=== PATIENT | male | born 1960 | race Caucasian/White ===

== ENCOUNTER 2017-09-17 03:40 | Inpatient (IN) | payer OTHER ==
[~2017-09-17] VITALS: Ht 180.3 cm; Wt 104.3 kg
[~2017-09-17 03:40] MED LIST: LISINOPRIL-HCT1 EAC1 PO; PRAVACHOL40 M1 PO
--- NOTE | 2017-09-17 08:46 | Admission Core Measures ---
Acute Coronary Syndrome (CM) ACS Core Measures Acute Coronary Syndrome Diagnosis No Congestive Heart Failure (NEW) CHF Core Measures Congestive Heart Failure Diagnosis No Cerebrovascular Accident (NEW) CVA Core Measures CVA/TIA Diagnosis No Venous Thromboembolism VTE Core Jaylene (View Protocol) VTE Risk Factors Surgery No Mechanical VTE Prophylaxis d/t N/A MechProphylax Ordered No VTE Pharm Prophylaxis d/t NA PharmProphylax ordered Problem List As ranked by this Provider includes Assessment & Plan 1. Unilateral primary osteoarthritis, left hip HOME MEDS Home Med List Lisinopril/Hydrochlorothiazide (Lisinopril-Hctz 20-25 MG Tab) 20 MG-25 MG TABLET 1 TAB PO DAILY BP (Reported) Pravastatin Sodium (Pravachol) 40 MG TABLET 1 TAB PO DAILY CHOLESTEROL ( Reported)
[2017-09-17] MEDS ORDERED: INDOMETHACIN25 M1 PO (09:18)
[2017-09-17] MEDS ORDERED: MS CONTIN15 M3 PO (09:18)
[2017-09-17] MEDS ORDERED: ASPIRIN EC81 M1 PO (09:18)
[2017-09-17] MEDS ORDERED: DILAUDID2 M1 PO (09:18)
[2017-09-17] MEDS ORDERED: COLACE100 M1 PO (09:18)
[2017-09-17] MEDS ORDERED: MIRALAX17 G1 PO (09:18)
[2017-09-17] MEDS ORDERED: PROTONIX20 M1 PO (09:18)
--- NOTE | 2017-09-17 09:24 | Patient Discharge Instructions ---
Discharge Instructions General Discharge Information You were seen/treated for: Left hip pain related to osteoarthritis You had these procedures: Left total hip arthroplasty Watch for these problems: Worsening pain despite pain medications Inability to bear wear on operative leg Redness or drainage from incision Fever > 101 F Other wound care: Keep incision clean and dry. Dressing will be changed 48hr after surgery, then you may shower. Do not soak wound- no tub baths/swimming. Daily dry dressings recommended. Watch for signs of wound infection Special Instructions: Take Aspirin 81mg twice daily for 30 days. Take miralax and colace to prevent constipation. Take Indocin for 10 days and Dilaudid as needed for pain control. Take Protonix for GI protection while taking high dose aspirin. Diet Continue normal diet: Yes Activity Activity Self Limited: Yes Activity Limited to: Weight bear as tolerated Additional ACTIVITY Info: Use rolling walker as needed Acute Coronary Syndrome Inclusion Criteria At DC or during hospital stay patient has or had the following: ACS DIAGNOSIS No Discharge Core Measures Meds if any: Prescribed or Continued at Discharge Meds if any: NOT Prescribed or Continued at Discharge Congestive Heart Failure Inclusion Criteria At DC or during hospital stay patient has or had the following: CHF DIAGNOSIS No Discharge Core Measures Meds if any: Prescribed or Continued at Discharge Meds if any: NOT Prescribed or Continued at Discharge Cerebrovascular accident Inclusion Criteria At DC or during hospital stay patient has or had the following: CVA/TIA Diagnosis No Discharge Core Measures Meds if any: Prescribed or Continued at Discharge Meds if any: NOT Prescribed or Continued at Discharge Venous thromboembolism Inclusion Criteria VTE Diagnosis No VTE Type NONE VTE Confirmed by (Test) NONE Discharge Core Measures - Per Current guidelines, there needs to be overlap - treatment for the first 5 days of Warfarin therapy. - If discharged on Warfarin prior to 5 days of - overlap therapy, the patient will need to be - assessed for post discharge needs including - *Post discharge parental anticoagulation - *Warfarin and/or parental anticoagulation education - *Follow up date to check INR post discharge At least 5 days overlap therapy as Inpatient No Meds if any: Prescribed or Continued at Discharge Note: Overlap Therapy is Warfarin and Anticoagulant Meds if any: NOT Prescribed or Continued at Discharge
--- NOTE | 2017-09-17 09:25 | Surg Short-stay <48hrs Dis Sum ---
Visit Information Visit Dates Admission Date: 09/17/17 Discharge Date: 09/17/17 Surgical Short Stay DC Summary Admission Diagnosis: Primary osteoarthritis left hip Final Diagnosis: Same, status post left total hip arthroplasty Procedure(s): Left total hip arthroplasty Summary/Significant Findings: Patient was admitted to the hospital for an elective total left hip replacement. Procedure was tolerated well and patient was transferred to a general surgical floor. Diet was advanced and tolerated. Physical therapy performed evaluation and treatment. At time of hospital discharge, vital signs were stable, neurovascular status was intact, and pain was controlled with the use of oral pain medications. Condition at Discharge: Stable Discharge Disposition: home health services Discharge instructions provided to patient/family: Yes Post discharge follow-up plan: Follow up with Dr. Paulino in 6 weeks from date of surgery. Please call his office to schedule/confirm this appointment.
--- NOTE | 2017-09-17 09:59 | RADIOLOGY REPORT ---
EXAMINATION: XR HIP, LEFT CLINICAL INFORMATION: Arthroplasty COMPARISON: None TECHNIQUE: Two views of the left hip. FINDINGS: The hip arthroplasty is in anatomic position and alignment. No fracture seen. IMPRESSION: Expected arthroplasty findings.
[2017-09-17 11:00] VITALS: BP 110/68
--- NOTE | 2017-09-17 11:29 | PN- Orthopedic ---
Subjective Subjective: Patient reports no pain postop. He reports resolution in his lower extremity numbness. He is tolerating clears. Denies voiding. Offers no complaints. Objective Vital Signs and I&Os Vital Signs Date Time Temp Pulse Resp B/P B/P Pulse O2 O2 Flow FiO2 Mean Ox Delivery Rate 09/17 1055 Nasal 2.0L Cannula Intake & Output 09/17 1600 09/17 0800 09/17 0000 09/16 1600 09/16 0800 09/16 0000 Intake Total Output Total Balance Patient 230 lb 225 lb Weight Weight Reported by Patient Measurement Method Physical Exam: Vitals: afebrile, HR 88, BP 110/68, RR 22, O2 92% Gen - nad Cardiac - S1S2 noted, RRR Lungs - CTAB Ext - L hip dressing c/d/i, moves all extremities, compartment soft, motor an senosry intact, no edema or calf tenderness, alps in place Current Medications: Current Medications Sig/Lindsay Start time Last Medication Dose Route Stop Time Status Admin Acetaminophen 975 MG ONCE 09/17 0000 DC PO 09/17 2359 Aspirin 81 MG BID 09/17 1000 UNVr PO Cefazolin Sodium 2 GM IQ8 09/17 1600 UNVr N/A 1 UNIT IV 09/18 0029 Cefazolin Sodium 2,000 MG ONCE 09/17 0000 DC IV 09/17 2359 Dextrose/Sodium 1,000 ML .[id number] 09/17 1145 UNVr Chloride IV Hydrochlorothiazide 25 MG DAILY 09/18 1000 UNVr PO Hydromorphone HCl 2 MG Q4P PRN 09/17 1145 UNVr PO Hydromorphone HCl 4 MG Q4P PRN 09/17 1145 UNVr PO Lisinopril 20 MG DAILY 09/18 1000 UNVr PO Morphine Sulfate 2 MG Q2P PRN 09/17 1145 UNVr IV Omeprazole 20 MG DAILY AC 09/18 0700 UNVr PO Ondansetron HCl 4 MG Q6P PRN 09/17 1145 UNVr IV Oxycodone HCl 10 MG ONCE 09/17 0000 DC PO 09/17 2359 Pravastatin Sodium 40 MG 1700 09/17 1700 UNVr PO Promethazine HCl 12.5 MG Q6P PRN 09/17 1145 UNVr IV 09/24 0859 Assessment/Plan Assessment/Plan 57 M POD 0 s/p L THR, recovernig well, awaiting postop void and PT eval PT eval, WBAT Reg diet, IVF Pain regimen, ice prn Indocin 25 mg po bid x 10 days Asa 81 bid, first dose tonight GI ppx on board Home meds ordered Bowel regimen on board Monitor postop void Encourage IS D/c meds/instructions explained in detail Anticipate d/c today w/ hhs pending PT clearance Core Measures Venous Thromboembolism VTE Risk Factors Surgery No Mechanical VTE Prophylaxis d/t N/A MechProphylax Ordered No VTE Pharm Prophylaxis d/t NA PharmProphylax ordered
[2017-09-17 14:20] VITALS: BP 120/70
--- NOTE | 2017-09-17 14:41 | Operative Report ---
Operative/Inv Procedure Report Surgery Date: 09/17/17 Name of Procedure: Left total hip replacement Pre-Operative Diagnosis: Primary left hip DJD Post-Operative Diagnosis: Same Estimated Blood Loss: 250 Surgeon/Linux System Admin: Jefferson CESAR,Hao Edmonds Anesthesia: block Operative/Procedure Note Note: Description of Procedure: The patient was taken to the operating room and positively identified. After induction of spinal anesthesia and administration of appropriate pre-operative antibiotics, the patient was positioned supine on the operating room table and all bony prominences were well padded. After performing a surgical timeout, the left lower extremity was prepped and draped in the usual sterile fashion. A direct anterior approach was made to the left hip. The incision was carried sharply through superficial soft tissues to the level of the fascia. Meticulous hemostasis was maintained with Bovie electocautery. The fascia over the tensor fascia jack muscle was opened sharply and the interval between the TFL and the sartorius was entered bluntly taking care to stay lateral to the lateral femoral cutaneous nerve. Retractors were placed around the femoral neck and the pericapsular fat was identified. The ascending branches of the lateral femoral circumflex vessels were identified and carefully coagulated. The pericapsular fat and anterior capsule were then resected. A napkin ring osteotomy was performed and the femoral head was removed without difficulty. Attention was then turned to the acetabulum. After appropriate placement of retractors, the acetabulum was exposed. Soft tissue was cleaned from the acetabular margin and notch. Overhanging osteophytes were removed and the teardrop was exposed. The acetabulum was then sequentially reamed to accept a 56 mm Accokeek Tritanium hemispherical solid shell. This was impacted into place in the appropriate position and fitted with a 36 mm Trident X3 zero degree polyethylene insert. Attention was then turned to the femur. After performing the appropriate ligament releases, the proximal femur was exposed. It was then sequentially broached to accept a size 8 Andrzej secure fit advanced 127 neck angle stem. This was trialed for leg length and stability. The trial component was removed and the final component was impacted into place. The trunnion was carefully cleaned and fit with a 36 mm, +2.5 Biolox delta ceramic femoral head. The hip was reduced and put through a full range of motion and found to be stable. The articular space was then irrigated with sterile saline. The periarticular soft tissues were infilitrated with Marcaine. The fascial layer was closed with interrupted #1 vicryl suture and the skin was re-approximated with interrupted 2 -0 vicryl. The skin was closed with a running 3-0 V-Lock suture. Steri-strips and a sterile dressing were applied. The patient was awakened and taken to the recovery room in satisfactory condition.
== END 2017-09-17 15:25 | disposition home health service (06) | DRG 470 ==
LOC: SDA 03:40 → ENRESERV 10:02 → ENTRNSPT 10:34 → EDTRNSPT 10:43 → EDTRNSPTSTS 10:43 → 2NA 10:53 → CMPTRNSPT 10:55 → ENPENDDIS 14:25 → ENTRNSPT 14:35 → CMPTRNSPT 14:55 → 2NA 15:25
PROC: 0SRB04A Replacement of Left Hip Joint with Ceramic on Polyethylene Synthetic Substitute, Uncemented, Open Approach (ICD-10-PCS; principal; 2017-09-17)
DX: M16.12 Unilateral primary osteoarthritis, left hip (principal); E66.9 Obesity, unspecified; I10 Essential (primary) hypertension; Z68.32 Body mass index [BMI] 32.0-32.9, adult; Z90.49 Acquired absence of other specified parts of digestive tract; E78.5 Hyperlipidemia, unspecified
CPT/HCPCS: 2NAP; 73502-LT; 97116-GO; 97161-GP; 97530-GO; 97535-GO; C9399; J0690; J0735; J2405; J2550; J3490; J7042